=== PATIENT | male | born 1940 | race Caucasian/White ===

== ENCOUNTER 2024-01-24 22:43 | Inpatient (IN) | payer MEDICARE, OTHER, SELFPAY ==
[2024-01-24 17:37] VITALS: BP 129/74
--- NOTE | 2024-01-24 21:24 | ED.MUSCINJ ---
HPI-Injury
General
Chief Complaint: Musculo-Skeletal Complaint
Source: patient
Exam Limitations: none
Time Seen by Provider: 01/24/24 20:36
Nursing documentation reviewed up to this point in time: agreed with
Travel History
Have you had any contact with someone who has COVID-19?: No
Do you have any symptoms of coronavirus? Fever > 100 degrees, chills, cough, shortness of breath, sore throat, loss of taste or smell, muscle aches, or headache?: No
History of Present Illness-Injury
Is this injury a work related problem?: No
Is pt an associate of [facility]?: No
Initial Injury comments:
Patient to ED with complaint of right knee pain, frequent falls. States he has a history of parkinsons. He fell a few weeks aog and injured his right knee. Had outpatient xrays which were neg for fracture. States he has fallen daily over the
past 3 days. States he is unable to lift his right leg. Brought to ED by spouse for eval. No other injuries. Denies hitting his head. No LOC>
Past History
Past History
ED Past Medical History: Arrthythmia (A fib), HTN and Other (Parkinsons)
ED Past Surgical History: None
Social History
Tobacco: Non-smoker
Alcohol: None
Review of Systems
Review of Systems
Allergies reviewed?: Yes
All Other Systems: ROS reviewed and negative except as documented in HPI and ROS
Constitutional: Reports no symptoms
Musculoskeletal: Reports joint pain (Pain to right ant knee)
Skin: Reports no symptoms
Neurological: Reports no symptoms
Psychiatric: Reports no symptoms
Musculoskeletal Injury Exam
Musculoskeletal Injury Exam
Right Anterior Knee:
Pain with Movement?: Moderate
Tender to palpation?: Moderate
Soft tissue swelling?: None
External deformity and angulation?: None
Joint effusion?: None
Contusion?: Moderate
Hematoma-local bleeding into tissue?: None
Strain- Sprain- Tear (Connective tissue injury)?: Moderate
Crepitus with movement?: No
Joint instability?: No
Malalignment/deformity?: No
Range of motion: Limited
Distal skin color and temperature: normal-warm & good color
Capillary Refill: normal
Normal distal neurovascular exam?: Yes
Phy Exam
General Physical Exam
General Presentation: well appearing and no apparent distress
General age: appears stated age
General Skin: warm and dry
General Habitus: normal
General Mental: alert
General Hydration: appears well hydrated
Musculoskeletal Exam
Musculoskeletal Exam: neuro vasc intact and other (Rupture of patellar tendon. Unable to lift leg at knee. Deformity palpated)
Skin Exam
Skin Exam: normal color, warm/dry and no rash
Psychiatric Exam
Psychiatric Exam: normal mood/affect
Injury Course
Orders/Labs/Results
Orders:
Orders
01/24/24 17:44
CR Knee- Right 4 Or More View* Urgent
Comment:
Reason For Exam: fall/knee pain
01/24/24 21:31
Complete Blood Count/With Diff Urgent
Comprehensive Metabolic Panel Urgent
*Radiology
Radiology exam reviewed: radiology read reviewed
*Pulse Oximetry
Patient hypoxic: no
*Critical Care Note
Total Time (30-74mins, 75-104mins- exclusive of procedures): Not Applicable
Update Note
Update Note:
Patient has followed with Yves at [facility]. Requests to follow with Yves provider here. Patient is admitted to hospitalists service for patellar tendon rupture. He is unable to safely transfer or ambulate.
ED Attending Note
-
Portions of this chart may have been created with voice recognition software.� Occasional wrong word or��sound alike� substitutions may have occurred due to the inherent limitations of voice recognition software.
Discharge Plan
Departure
Patient Disposition: Admit
Date of Disposition: 01/24/24
Time of Disposition: 21:30
Presentation/result/management discussed w/ accepting MD/DO: Hospitalist
Patient with high blood pressure during this ER visit?: No
Condition: Fair
Covid-19: Not Applicable
Discharge Problem:
Patellar tendon rupture
Prescriptions:
No Action
amantadine HCl [Symmetrel] 100 MG tablet
100 mg PO DAILY
cetirizine [Zyrtec] 10 MG tablet
10 mg PO DAILY
atorvastatin 10 MG tablet
10 mg PO DAILY
tamsulosin [Flomax] 0.4 MG capsule
0.4 mg PO DAILY
omeprazole 20 MG capsule,delayed release(DR/EC)
20 mg PO DAILY
carbidopa-levodopa 1 EACH tablet
0.5 tab PO Q3
btljnmvfv-sqbhzyrd-ezkrdmclyq 1 EACH tablet
1 ea PO Q3
solifenacin 10 MG tablet
10 mg PO DAILY
mirabegron [Myrbetriq] 25 MG tablet extended release 24 hr
50 mg PO DAILY
apixaban [Eliquis] 5 MG tablet
5 mg PO BID
atorvastatin 40 MG tablet
40 mg PO QPM Qty: 30 0RF
Interventions
Interventions:
*Risk Screen - Suicide Last Done: 01/24/24 17:37
*General Assessment Last Done: 01/24/24 17:37
*Neglect/Abuse Screening Last Done: 01/24/24 17:37
ED- Fall Risk Assessment Last Done: 01/24/24 21:15
*ED COVID-19 Vaccine History Last Done: 01/24/24 20:51
ED-Musculoskeletal Assessment Last Done: 01/24/24 20:51
ED- Neurological Assessment Last Done: 01/24/24 20:51
ED-Skin Assessment Last Done: 01/24/24 20:51
Discharge Date and Time
Print Language: NORTH KORE[place]
--- NOTE | 2024-01-24 21:34 | ED.MUSCINJ ---
HPI-Injury
General
Chief Complaint: Musculo-Skeletal Complaint
Source: patient
Exam Limitations: none
Time Seen by Provider: 01/24/24 20:36
Nursing documentation reviewed up to this point in time: agreed with
Travel History
Have you had any contact with someone who has COVID-19?: No
Do you have any symptoms of coronavirus? Fever > 100 degrees, chills, cough, shortness of breath, sore throat, loss of taste or smell, muscle aches, or headache?: No
Past History
Past History
ED Past Medical History: Arrthythmia (A fib), HTN and Other (Parkinsons)
ED Past Surgical History: None
Social History
Tobacco: Non-smoker
Alcohol: None
Injury Course
Orders/Labs/Results
Orders:
Orders
01/24/24 Dinner
Regular
At Your Request: Full Participation
01/24/24 17:44
CR Knee- Right 4 Or More View* Urgent
Comment:
Reason For Exam: fall/knee pain
01/24/24 21:47
Complete Blood Count/With Diff Urgent
Comprehensive Metabolic Panel Urgent
01/24/24 22:19
Admit/Transfer Patient As Directed
Co-Sign Provider:
Level of Care: Inpatient admission
Assign to:: Telemetry
Physician / Group: chandni pinon
Diagnosis: mechan falls w/ Right knee effusion concern ligament tear
Reason for Telemetry: Arrhythmia
Date to Stop Telemetry: 01/27/24
Time to Stop Telemetry: 11:00
Reason for Hospitalization: mechan falls w/ Right knee effusion concern ligament tear
Expected length of stay greater than two midnights?: Yes
ELOS- Estimated Length of Stay in days: 4
I certify the patient meets the requirements for IP care: Yes
Code Status As Directed
Resuscitation Status: Do not resuscitate
Reached after discussion with pt or family/Healthcare POA: Yes
Based on pt advanced directive or healthcare POA form: Yes
Decision communicated with: Per patient with present at bedside
01/24/24 22:20
DNR Bracelet Application ONCE
01/24/24 22:53
Oxycodone [Roxicodone] 5 mg PO Q4HPRN PRN
Polyethylene Glycol Powder [Miralax] 17 grams PO DAILYPRN PRN
01/24/24 22:53
Activity As Directed
Activity Level: With Assistance
Vital Signs As Directed
Frequency: Per unit guidelines
Ot Eval And Treat Routine
Pt Eval And Treat Routine
Activity Level: With Assistance
DX Deep Vein Thrombosis Video Routine
01/24/24 23:00
Carbidopa/Levodopa [Sinemet 25-100] 0.5 tablet PO Q3H
01/25/24 00:00
Acetaminophen [Tylenol] 650 mg PO Q4
01/25/24 04:39
Basic Metabolic Panel IN AM
Complete Blood Count/With Diff IN AM
01/25/24 08:00
Amantadine [Symmetrel] 100 mg PO DAILY
Empagliflozin [Jardiance] 10 mg PO DAILY
Flecainide [Tambocor] 100 mg PO BID
Heparin 5,000 units SC Q12
Metoprolol Xl [Toprol Xl] 25 mg PO DAILY
Pantoprazole [Protonix] 40 mg PO DAILY
Solifenacin Succinate [Vesicare] 5 mg PO DAILY
Torsemide [Demadex] 10 mg PO DAILY
rotigotine [Neupro] 1 patch TRANSDERM DAILY
01/25/24 22:00
Atorvastatin [Lipitor] 10 mg PO HS
Cetirizine HCl [Zyrtec] 10 mg PO HS
Mirtazapine [Remeron] 15 mg PO HS
Sertraline HCl [Zoloft] 100 mg PO HS
01/27/24 11:00
DC Protocol for Telemetry ONCE
Abnormal Lab Results
01/24/24
21:47
RBC 3.95 L 10^6/uL
(4.70-6.10)
Hgb 10.9 L g/dL
(13.0-18.0)
Hct 33.8 L %
(39.0-52.0)
MCHC 32.2 L g/dL
(33.0-37.0)
RDW 17.1 H %
(11.5-14.5)
Abs Immat Gran (auto) 0.1 H 10^3/uL
(0-0.05)
Absolute Monos (auto) 1.0 H 10^3/uL
(0.1-0.6)
Immature Gran % 0.7 H %
(0-0.5)
Monocytes % 12.4 H %
(1.7-9.3)
Chloride 112 H mmol/L
(98-107)
BUN 38 H mg/dl
(9-20)
01/24/24 21:47
01/24/24 21:47
ED Attending Note
-
Portions of this chart may have been created with voice recognition software.� Occasional wrong word or��sound alike� substitutions may have occurred due to the inherent limitations of voice recognition software.
Discharge Plan
Departure
Patient Disposition: Admit
Date of Disposition: 01/24/24
Time of Disposition: 21:30
Presentation/result/management discussed w/ accepting MD/DO: Hospitalist
Patient with high blood pressure during this ER visit?: No
Condition: Fair
Covid-19: Not Applicable
Discharge Problem:
Patellar tendon rupture
Interventions
Interventions:
*Risk Screen - Suicide Last Done: 01/24/24 17:37
*General Assessment Last Done: 01/24/24 17:37
*Neglect/Abuse Screening Last Done: 01/24/24 17:37
ED- Fall Risk Assessment Last Done: 01/24/24 21:15
*ED COVID-19 Vaccine History Last Done: 01/24/24 20:51
*Nursing Disposition Last Done: 01/25/24 19:59
ED-Musculoskeletal Assessment Last Done: 01/24/24 20:51
ED- Neurological Assessment Last Done: 01/24/24 20:51
ED-Skin Assessment Last Done: 01/24/24 20:51
Discharge Date and Time
Discharge Date/Time: 01/25/24 20:00
--- NOTE | 2024-01-24 21:40 | HPS.HSE ---
Addendum entered and electronically signed by Clifford Collins MD 01/24/24 23:08:
-
Original Note:
Family Physician
-
Family Physician:
Chief Complaint
-
Frequent falls, right knee pain
History of Present Illness
83-year-old male with a history of Parkinson's disease and frequent falls. He reports he has fallen daily over the past 3 days he is unable to lift his right leg due to pain and swelling in the right knee. Had outpatient x-rays that were negative
for fracture x-ray here shows moderate to large effusion. His past medical history of Parkinson's, frequent falls, chronic ambulatory dysfunction, persistent A-fib, sick sinus syndrome, pacemaker [employer] 2020, [employer], CVA 2020, HTN, HLD,
arthritis knees with injections to left knee [facility]
Medical History
Past Medical History
Past Medical History: Reports Other
Additional Past Medical History:
Parkinson's, frequent falls
chronic ambulatory dysfunction
persistent A-fib
sick sinus syndrome, pacemaker [employer] 2020, [facility]
CVA 2020
HTN
HLD
arthritis knees with injections to left knee [facility]
Past Surgical History: Reports Other
Additional Past Surgical History:
sick sinus syndrome, pacemaker [employer] 2020, [employer]
Joint injections left knee [facility]
Hiatal hernia repair
Social History
Tobacco: Non-smoker
Alcohol: None
Drug: None
Personal:
Living: With Family ( Kvng)
Employment: Retired
Family History
Family History: Not pertinent
Allergies / Home Medications
Allergies reflects when Allergies were last updated in [employer]
Home Medications with original date entered in [employer] [facility] [employer])
Allergy/Medication List:
Allergies
Allergy/AdvReac Type Severity Reaction Status Date / Time
hazelnut Allergy Tongue Verified 01/24/24 17:44
Swelling
Iodinated Contrast Media Allergy Unknown Verified 01/24/24 17:44
Home Medications
atorvastatin 10 mg tablet 10 mg PO HS High cholesterol 04/20/20
cetirizine 10 mg tablet (Zyrtec) 10 mg PO HS Allergies 04/20/20
omeprazole 20 mg capsule,delayed release 20 mg PO DAILY Gastrointestinal issue 04/20/20
acetaminophen 650 mg tablet,extended release 650 mg PO Q3H 01/24/24
amantadine HCl 100 mg capsule 100 mg PO DAILY 01/24/24
carbidopa 25 mg-levodopa 100 mg tablet (Dhivy) 0.5 tab PO Q3H 01/24/24
carbidopa 25 mg-levodopa 100 mg-entacapone 200 mg tablet 1 tab PO Q3H 01/24/24
empagliflozin 10 mg tablet (Jardiance) 10 mg PO DAILY 01/24/24
flecainide 50 mg tablet 100 mg PO BID 01/24/24
metoprolol succinate 25 mg tablet,extended release 24 hr 25 mg PO DAILY 01/24/24
mirtazapine 15 mg tablet 15 mg PO HS 01/24/24
polyethylene glycol 3350 17 gram oral powder packet (Miralax) 17 g PO DAILY PRN constipation 01/24/24
rotigotine 6 mg/24 hour transdermal 24 hour patch (Neupro) 1 patch transdermal DAILY 01/24/24
sertraline 100 mg tablet 100 mg PO HS 01/24/24
solifenacin 5 mg tablet 5 mg PO DAILY 01/24/24
torsemide 20 mg tablet 10 mg PO DAILY 01/24/24
Review of Systems
-
History Source: Patient and Family ( Kvng at bedside)
A 12 point ROS was completed and negative except as noted: Yes
Constitutional: Denies Fever or Fatigue
EENT: Denies Sore Throat or Runny Nose
Respiratory: Denies Cough or Trouble Breathing
Cardiac: Denies Chest Pain, Diaphoresis, Palpitations or Syncope
Abdomen/GI: Denies Abdominal Pain, Nausea, Vomiting or Diarrhea
: Denies Dysuria, Frequency, Flank Pain, Incontinence or Difficulty Voiding
Musculoskeletal: Reports Joint Pain (Right knee), Joint Swelling (Right knee) and Edema (Right lower extremity +1-2)
Skin: Reports Other (Abrasions bilateral knees); Denies Itching or Rash
Neurological: Denies Dizzy, Headache or Weakness
Endocrine: Reports No Symptoms
Hematologic/Lymphatic: Reports No Symptoms
Psych: Reports Calm
Physical Exam
Vital Signs
Vital Signs
Temp Pulse Resp BP Pulse Ox
97.5 F 60 20 129/74 97
01/24/24 17:37 01/24/24 17:37 01/24/24 17:37 01/24/24 17:37 01/24/24 17:37
Physical Exam
General: Comfortable, Conversant and Pain; No Fever or Chills
HEENT: NormoCephalic, Anicteric, PERRLA, [place] Conjunctivae and No Ptosis
Respiratory: Clear; No Wheezes, Rales or Rhonchi
Cardiac: S1/S2, Regular Rhythm and Peripheral Edema; No Murmur, Rub or Gallop
Breast: Deferred by me
GI: Soft, Non Tender, Non Distended, Normal Bowel Sounds and No Hepatosplenomegaly
Rectal: Deferred by Provider
Genito-urinary: Deferred by me
Musculoskeletal: No Clubbing, No Cyanosis, Edema, Right Lower Extremity (+1-2) and Other (Right knee tenderness top of patella, right medial collateral ligament tenderness with joint effusion); No Edema, Left Upper Extremity, Edema, Right Upper
Extremity or Edema, Left Lower Extremity
Skin: Warm, Dry and Other (Abrasion bilateral knees left lower extremity); No Rash
Neuro: AO x 3 and Other; No Slurred Speech, Facial Droop or Tremors
Psych: Calm
Impression/Plan
-
Impression/plan:
Admit to telemetry
# Mechanical fall w/right knee effusion concern for ligament tear
-Consult Yves in am as no one belt sander stone tonight (patient known to Yves at [facility] for knee injections)
-Knee immobilizer
-MRI right knee if pacemaker compatible
-PT/OT/case management consult
X-ray right knee: No acute fracture or dislocation
Moderate to large joint effusion within the suprapatellar recess seen on lateral view
#Abrasions bilateral knees and left anterior hernandez
Local wound care monitor for infection
#Parkinson's disease with multiple falls
#Chronic ambulatory dysfunction uses rollator at baseline
-Continue carbidopa /levodopa /entacapone -patient to take own
-Continue Neupro patch
#Persistent A-fib
-Continue flecainide, metoprolol succinate 25 mg daily
-Hold Eliquis
2D echo 04/21/2020: EF 70-75%, left ventricle small in size, enlarged right ventricular size, severely dilated left atrium, moderate dilated right atrium
Mild to moderate MR
Mild to moderate TR
Small PFO
#Permanent pacemaker [employer]
#Sick sinus syndrome
#Chronic leg edema
-Continue torsemide 10 mg daily
#CVA 2019
#HTN�benign
Continue metoprolol succinate 25 mg daily
129/74
#HLD
-Continue atorvastatin
#Urinary frequency
-continue Myrbetriq, Vesicare 5 mg daily
#GERD
-Continue omeprazole
#Insomnia
-Continue mirtazapine
DVT prophylaxis
Subcu heparin
DNR per patient with Kvng at bedside
[2024-01-24 21:54] VITALS: BP 158/103
[2024-01-24 21:56] LABS: % Basophils 0.5 % (0-2); % Eosinophils 4.3 % (0-6); % Immature Granulocytes 0.7 % (0-0.5); % Lymphocytes 20.8 % (20.5-51.1); % Monocytes 12.4 % (1.7-9.3); % Neutrophils 61.3 % (42.2-75.2); Absolute Eosinophils 0.3 10^3/uL (0-0.7); Absolute Immature Granulocytes 0.1 10^3/uL (0-0.05); Absolute Lymphocytes 1.6 10^3/uL (1.2-3.4); Absolute Neutrophils 4.7 10^3/uL (1.4-6.5); Hematocrit 33.8 % (39.0-52.0); Hemoglobin 10.9 g/dL (13.0-18.0); Mean Corp Hgb Conc. 32.2 g/dL (33.0-37.0); Mean Corpuscular Hgb 27.6 pg (27.0-31.0); Mean Corpuscular Volume 85.6 fL (80.0-94.0); Mean Platelet Volume 8.5 fL (7.4-10.4); Nucleated Red Blood Cells % 0 % (-); Platelet Count 297 10^3/uL (130-400); Red Blood Cell Count 3.95 10^6/uL (4.70-6.10); Red Cell Dist. Width 17.1 % (11.5-14.5); White Blood Cell Count 7.7 10^3/uL (4.8-10.8)
[2024-01-24 22:00] VITALS: BP 170/90
[2024-01-24 22:14] VITALS: BP 166/97
[2024-01-24 22:23] LABS: ALT (SGPT) < 10 U/L (0-50); AST (SGOT) 32 U/L (17-59); Albumin 3.9 g/dl (3.5-5.0); Alkaline Phosphatase 102 U/L (38-126); Blood Urea Nitrogen 38 mg/dl (9-20); Carbon Dioxide 24 mmol/L (22-30); Chloride 112 mmol/L (98-107); Glucose 92 mg/dl (70-99); Potassium 5.1 mmol/L (3.5-5.1); Sodium 139 mmol/L (135-145); Total Bilirubin 0.4 mg/dl (0.2-1.3); Total Protein 6.4 g/dl (6.3-8.2); eGFR 55.19
[2024-01-24 23:00] VITALS: BP 185/101
--- NOTE | 2024-01-24 23:08 | W.PN.UPDATE ---
Update Note
Progress Note Update
This is an addendum to the H&P written by lens assistant Sherry Carrizales on 01/24/2024.
Patient seen and examined independently with MONITOR TECHNICIAN.� 83-year-old past medical history of atrial fibrillation not on anticoagulation, sick sinus syndrome with pacemaker,, Parkinson's, BPH, hyperlipidemia, hypertension, bilateral knee arthritis for which
he receives injections by Yves, presenting with frequent falls with recent fall few weeks ago injuring his right knee.
Knee x-ray showing moderate to large suprapatellar joint effusion.� Concern for possible patellar tendon tear/ligament injury.� Check MRI of right knee.� [facility] orthopedics needs to be consulted tomorrow.� Joint effusion may require drainage.
[2024-01-24] MEDS: SINEMET 25-100 1 TABLET PO (23:52)
[2024-01-24] MEDS: COMTAN 200 MG PO (23:52)
[2024-01-24] MEDS: TYLENOL 650 MG PO (23:52)
[2024-01-25] VITALS (26 sets, daily range): BP systolic 89–189; BP diastolic 51–110
[2024-01-25 04:47] LABS: % Basophils 0.9 % (0-2); % Eosinophils 5.3 % (0-6); % Immature Granulocytes 0.4 % (0-0.5); % Lymphocytes 23.7 % (20.5-51.1); % Monocytes 12.2 % (1.7-9.3); % Neutrophils 57.5 % (42.2-75.2); Absolute Basophils 0.1 10^3/uL (0-0.2); Absolute Eosinophils 0.4 10^3/uL (0-0.7); Absolute Lymphocytes 1.7 10^3/uL (1.2-3.4); Absolute Monocytes 0.9 10^3/uL (0.1-0.6); Absolute Neutrophils 4.1 10^3/uL (1.4-6.5); Hematocrit 34.4 % (39.0-52.0); Hemoglobin 10.8 g/dL (13.0-18.0); Mean Corp Hgb Conc. 31.4 g/dL (33.0-37.0); Mean Corpuscular Hgb 26.8 pg (27.0-31.0); Mean Corpuscular Volume 85.4 fL (80.0-94.0); Mean Platelet Volume 8.5 fL (7.4-10.4); Nucleated Red Blood Cells % 0 % (-); Platelet Count 288 10^3/uL (130-400); Red Blood Cell Count 4.03 10^6/uL (4.70-6.10); Red Cell Dist. Width 17.1 % (11.5-14.5)
[2024-01-25] MEDS: TYLENOL PO (05:03)
[2024-01-25 05:21] LABS: Blood Urea Nitrogen 35 mg/dl (9-20); Calcium 9.9 mg/dl (8.4-10.2); Carbon Dioxide 23 mmol/L (22-30); Chloride 111 mmol/L (98-107); Estimated Creatinine Clearance 45 ml/min; Glucose 90 mg/dl (70-99); Potassium 4.9 mmol/L (3.5-5.1); Sodium 137 mmol/L (135-145); eGFR > 60.00
--- NOTE | 2024-01-25 07:52 | W.PN.UPDATE ---
Update Note
Progress Note Update
Has R knee quadriceps rupture
For Repair tomorrow
Thanks
GGMD
[2024-01-25] MEDS: SINEMET 25-100 0.5 TABLET PO ×5 (08:33→21:58)
[2024-01-25] MEDS: SINEMET 25-100 1 TABLET PO ×4 (08:33→21:58)
[2024-01-25] MEDS: COMTAN 200 MG PO ×4 (08:33→21:55)
[2024-01-25] MEDS: TYLENOL 650 MG PO ×4 (08:40→21:48)
[2024-01-25] MEDS: TOPROL XL 25 MG PO (08:40)
[2024-01-25] MEDS: PROTONIX 40 MG PO (08:40)
[2024-01-25] MEDS: DEMADEX 10 MG PO (08:40)
[2024-01-25] MEDS: JARDIANCE 10 MG PO (08:41)
[2024-01-25] MEDS: HEPARIN 5000 UNITS SC ×2 (08:41→21:49)
--- NOTE | 2024-01-25 09:02 | W.PN.UPDATE ---
Update Note
Progress Note Update
Impression:
Right knee quadriceps rupture secondary to mechanical fall.
AIYANA
Conditions prior to admission:
Persistent atrial fibrillation
Sick sinus syndrome status post pacemaker.
History of CVA 2019.
Essential hypertension
Dyslipidemia
Parkinson disease
Chronic ambulatory dysfunction with multiple falls.
Osteoarthritis of the knee with injections to the left knee.
Overactive bladder
Plan:
Right knee quadriceps rupture.
Orthopedic input appreciated.
Plan is for OR repair on 01/25.
Medical clearance for surgery.
Low/intermediate risk surgical procedure.
RCRI (revised cardiac risk index) including 6 independent predictors of major cardiac complications
� History of cerebrovascular disease.
-Negative for heart failure, diabetes, mild with creatinine 1.3 improved to 1.1. No history of CKD.
Rate of cardiac , nonfatal myocardial infarction, nonfatal cardiac arrest according to the number of predictors (1) 1�1.3 %
No prohibitive risk to proceed. No additional workup required.
Persistent atrial fibrillation
Sick sinus syndrome with pacemaker in place.
Not on anticoagulation secondary to fall risk.
Continue metoprolol
Valvular heart disease
Essential hypertension
Echo 2020 LVEF 70-75%, enlarged right ventricle, normal right ventricular function. Mild to moderate MR.
Monitor volume status closely.
Preadmission regimen: Metoprolol, torsemide, Jardiance.
AIYANA creatinine 1.3.
Hold torsemide.
Monitor BMP.
Reinstate diuretic postoperatively
Parkinson disease
Continue carbidopa levodopa
Continue sertraline and Remeron.
Overactive bladder
Continue Solifenacin.
Monitor for retention.
--- NOTE | 2024-01-25 09:08 | W.PN.HOSP.TC ---
Today's Communication/Plan
-
Right knee quadriceps repair tomorrow
Assessment / Plan
Assessment / Plan
Impression
Right knee quadriceps rupture
Parkinson disease with multiple falls
Persistent atrial fibrillation
Permanent pacemaker placed in 2019
Hypertension
Chronic leg edema
History of CVA
GERD
History of mood disorder
Plan
Right knee quadriceps rupture
Orthopedics input appreciated
Repair tomorrow
N.p.o. after midnight
Parkinson disease with multiple falls
Leading to chronic ambulatory dysfunction. Patient uses rollator
Resume home medications-carbidopa/levodopa/entacapone
Continue neuro patch
Persistent atrial fibrillation
Resume flecainide for rhythm control
Rate controlled with beta-blockers
Hold Eliquis
Permanent pacemaker placed in 2019
Due to sickness sinus syndrome
Hypertension
Continue metoprolol succinate
Chronic leg edema
Continue torsemide
GERD
Continue omeprazole
History of mood disorder
Continue mirtazapine, sertraline
DVT prophylaxis
Heparin subcu
Anticipated Discharge: > 48 hours
Subjective/Interval History
-
Date of Service: January 25, 2024
Patient is doing okay, denies chest pain shortness of breath. at bedside.
Objective Data
-
Labs:
Laboratory Results
01/24/24 01/25/24
21:47 04:39
WBC 7.7 7.0
Hgb 10.9 L 10.8 L
Hct 33.8 L 34.4 L
Plt Count 297 288
Sodium 139 137
Potassium 5.1 4.9
Chloride 112 H 111 H
Carbon Dioxide 24 23
BUN 38 H 35 H
Creatinine 1.3 1.1
Glucose 92 90
Calcium 10.0 9.9
Total Bilirubin 0.4
AST 32
ALT < 10
Alkaline Phosphatase 102
Vital Signs:
Vital Signs
Temp Pulse Resp BP Pulse Ox
97.5 F 70 10 172/51 96
01/24/24 17:37 01/25/24 08:40 01/25/24 00:00 01/25/24 08:40 01/24/24 23:00
Review of Systems
-
History Source: Patient
All other systems: Reviewed and negative
Physical Exam
-
General: Comfortable
HEENT: Normocephalic and Atraumatic
Respiratory: Clear to Auscultation
Cardiac: Regular Rhythm and S1/S2
Musculoskeletal: No Edema
Neuro: AO x 3
Psych: Calm
Data Reviewed
-
Labs: Labs Reviewed by me and Discussed with Physician
[2024-01-25] MEDS: VESICARE 5 MG PO (11:25)
[2024-01-25] MEDS: SYMMETREL 100 MG PO (11:25)
[2024-01-25] MEDS: TAMBOCOR 100 MG PO ×2 (11:26→21:48)
[2024-01-25] MEDS: SINEMET 25-100 PO ×2 (11:28→11:45)
--- NOTE | 2024-01-25 13:26 | CM ---
Patient seen at bedside in ED with spouse. Patient spouse indicated that he was very interested in aides/VN at discharge pending assessments by therapy/physician. Patient stated that they have 2 homes, one in [place] that is 2 stories with
stair glides and an apartment/condo in [place] that is all one floor. Patient has a quad cane, rollator, walker and wheelchair at home. Patient is followed by [facility] from [facility] and has current therapist. Patient currently scheduled for
possible surgery tomorrow. PCP is Dr. Figueredo and [facility] [place] on [address] CM will continue to follow for discharge planning needs.
Plan; TBD pending assessments following surgery, Possible VN vs SNF
[2024-01-25] MEDS: MIRALAX 17 GRAMS PO (13:38)
[2024-01-25] MEDS: COMTAN PO (16:21)
[2024-01-25] MEDS: DULCOLAX 10 MG RECTAL (17:10)
--- NOTE | 2024-01-25 21:03 | W.PN.UPDATE ---
Update Note
Progress Note Update
Patient is hypotensive with bp 90/58 symptomatic, feeling dizzy, one time order of IVF NSS 500cc was placed.
[2024-01-25] MEDS: NSS 500 IV (21:15)
[2024-01-25] MEDS: ZYRTEC 10 MG PO (21:48)
[2024-01-25] MEDS: LIPITOR 10 MG PO (21:48)
[2024-01-25] MEDS: ZOLOFT 100 MG PO (21:48)
[2024-01-25] MEDS: REMERON PO (22:49)
[2024-01-26] VITALS (13 sets, daily range): BP systolic 109–172; BP diastolic 66–96
--- NOTE | 2024-01-26 00:13 | PTCARENOTE ---
This RN received pt from ED around 2029. Pt drowsy but arousable and able to hold conversation with staff. Pt falling asleep during conversations at times. Manual BP 90/58. BUTCH Vitale notified. 500 ml bolus of NSS ordered. Going at 100mls/hr.
Call rubio within reach. Plan of care ongoing.
[2024-01-26] MEDS: TYLENOL 650 MG PO ×6 (00:34→23:57)
[2024-01-26] MEDS: SINEMET 25-100 1 TABLET PO ×7 (00:36→23:56)
[2024-01-26] MEDS: COMTAN 200 MG PO ×7 (00:36→23:56)
[2024-01-26] MEDS: SINEMET 25-100 0.5 TABLET PO ×7 (00:36→23:56)
[2024-01-26 05:45] LABS: % Basophils 0.4 % (0-2); % Eosinophils 1.3 % (0-6); % Immature Granulocytes 0.6 % (0-0.5); % Lymphocytes 11.2 % (20.5-51.1); % Monocytes 11.3 % (1.7-9.3); % Neutrophils 75.2 % (42.2-75.2); Absolute Basophils 0.1 10^3/uL (0-0.2); Absolute Eosinophils 0.2 10^3/uL (0-0.7); Absolute Immature Granulocytes 0.1 10^3/uL (0-0.05); Absolute Lymphocytes 1.3 10^3/uL (1.2-3.4); Absolute Monocytes 1.3 10^3/uL (0.1-0.6); Absolute Neutrophils 8.6 10^3/uL (1.4-6.5); Hematocrit 31.4 % (39.0-52.0); Hemoglobin 10.2 g/dL (13.0-18.0); Mean Corp Hgb Conc. 32.5 g/dL (33.0-37.0); Mean Corpuscular Hgb 27.5 pg (27.0-31.0); Mean Corpuscular Volume 84.6 fL (80.0-94.0); Mean Platelet Volume 8.7 fL (7.4-10.4); Nucleated Red Blood Cells % 0 % (-); Platelet Count 282 10^3/uL (130-400); Red Blood Cell Count 3.71 10^6/uL (4.70-6.10); Red Cell Dist. Width 17.1 % (11.5-14.5); White Blood Cell Count 11.4 10^3/uL (4.8-10.8)
[2024-01-26 06:15] LABS: Blood Urea Nitrogen 31 mg/dl (9-20); Calcium 9.2 mg/dl (8.4-10.2); Carbon Dioxide 23 mmol/L (22-30); Chloride 104 mmol/L (98-107); Estimated Creatinine Clearance 45 ml/min; Glucose 88 mg/dl (70-99); Potassium 4.5 mmol/L (3.5-5.1); Sodium 132 mmol/L (135-145); eGFR > 60.00
[2024-01-26] MEDS: SYMMETREL 100 MG PO (08:06)
[2024-01-26] MEDS: PROTONIX 40 MG PO (08:06)
[2024-01-26] MEDS: JARDIANCE 10 MG PO (08:06)
[2024-01-26] MEDS: TAMBOCOR 100 MG PO ×2 (08:07→20:41)
[2024-01-26] MEDS: HEPARIN 5000 UNITS SC (08:08)
[2024-01-26] MEDS: VESICARE 5 MG PO (08:13)
[2024-01-26] MEDS: TOPROL XL 25 MG PO (08:19)
[2024-01-26] MEDS: SENOKOT-S 1 TABLET PO (10:03)
--- NOTE | 2024-01-26 11:03 | CM ---
Pt for a right knee quad repair .
Will need PT OT postop for dc planning.
PLAN will depend on PT OT evals postop
--- NOTE | 2024-01-26 11:10 | W.PN.HOSP.TC ---
Today's Communication/Plan
-
Surgery planned today
Assessment / Plan
Assessment / Plan
Impression
Right knee quadriceps rupture
Parkinson disease with multiple falls
Persistent atrial fibrillation
Permanent pacemaker placed in 2019
Hypertension
Chronic leg edema
History of CVA
GERD
History of mood disorder
Plan
Right knee quadriceps rupture
Orthopedics input appreciated
Surgery planned today
RCRI 6%- low to intermediate risk for a low risk surgery
Parkinson disease with multiple falls
Leading to chronic ambulatory dysfunction. Patient uses rollator
Resume home medications-carbidopa/levodopa/entacapone
Continue neuro patch
Persistent atrial fibrillation
Resume flecainide for rhythm control
Rate controlled with beta-blockers
Hold Eliquis
Permanent pacemaker placed in 2019
Due to sickness sinus syndrome
Hypertension
Continue metoprolol succinate
Chronic leg edema
Continue torsemide
GERD
Continue omeprazole
History of mood disorder
Continue mirtazapine, sertraline
DVT prophylaxis
Heparin subcu
Anticipated Discharge: 24 - 48 hours
Subjective/Interval History
-
Date of Service: January 26, 2024
Patient was hypotensive 90/58 last night and was started in IVF NSS 500 CC which improved BP
Objective Data
-
Labs:
Laboratory Results
01/26/24
05:02
WBC 11.4 H
Hgb 10.2 L
Hct 31.4 L
Plt Count 282
Sodium 132 L
Potassium 4.5
Chloride 104
Carbon Dioxide 23
BUN 31 H
Creatinine 1.2
Glucose 88
Calcium 9.2
Vital Signs:
Vital Signs
Temp Pulse Resp BP Pulse Ox
98.0 F 63 18 129/83 96
01/26/24 07:00 01/26/24 08:19 01/26/24 07:00 01/26/24 08:19 01/26/24 07:00
I&O
01/25/24 01/26/24 01/27/24
06:59 06:59 06:59
Output Total 1300 / 1300
Balance -1300 / -1300
Review of Systems
-
History Source: Patient
All other systems: Reviewed and negative
Physical Exam
-
General: Comfortable and Conversant; Negative Respiratory Distress
HEENT: Normocephalic and Atraumatic
Respiratory: Clear to Auscultation
Cardiac: Regular Rhythm and S1/S2
Musculoskeletal: No Edema
Neuro: AO x 3
Data Reviewed
-
Labs: Labs Reviewed by me and Discussed with Physician
--- NOTE | 2024-01-26 14:13 | W.PN.UPDATE ---
Update Note
Progress Note Update
Patient seen and examined
Discussed with resident
Discussed with patient's at the bedside.
Impression:
Right knee quadriceps rupture secondary to mechanical fall.
AIYANA
Conditions prior to admission:
Persistent atrial fibrillation
Sick sinus syndrome status post pacemaker.
History of CVA 2019.
Essential hypertension
Dyslipidemia
Parkinson disease
Chronic ambulatory dysfunction with multiple falls.
Osteoarthritis of the knee with injections to the left knee.
Overactive bladder
Plan:
Right knee quadriceps rupture.
Orthopedic input appreciated.
Plan is for OR repair on 01/25.
Medical clearance for surgery.
Low/intermediate risk surgical procedure.
RCRI (revised cardiac risk index) including 6 independent predictors of major cardiac complications
� History of cerebrovascular disease.
-Negative for heart failure, diabetes, mild with creatinine 1.3 improved to 1.1. No history of CKD.
Rate of cardiac , nonfatal myocardial infarction, nonfatal cardiac arrest according to the number of predictors (1) 1�1.3 %
No prohibitive risk to proceed. No additional workup required.
Persistent atrial fibrillation
Sick sinus syndrome with pacemaker in place.
Not on anticoagulation secondary to fall risk.
Continue metoprolol
Valvular heart disease
Essential hypertension
Echo 2019 LVEF 70-75%, enlarged right ventricle, normal right ventricular function. Mild to moderate MR.
Monitor volume status closely.
Preadmission regimen: Metoprolol, torsemide, Jardiance.
AIYANA creatinine 1.3.
Hold torsemide.
Monitor BMP.
Reinstate diuretic postoperatively
Parkinson disease
Continue carbidopa levodopa
Continue sertraline and Remeron.
Overactive bladder
Continue Solifenacin.
Monitor for retention.
[2024-01-26] MEDS: NEUPRO 4 MG TRANSDERM (14:54)
[2024-01-26] MEDS: NEUPRO 2 MG TRANSDERM (15:00)
[2024-01-26] MEDS: TYLENOL PO (15:08)
--- NOTE | 2024-01-26 15:12 | PTCARENOTE ---
called report to OR. Pt's spouse at bedside. Dr. Kerr to discuss POC in OR with pt and spouse. cleared PO medications with anesthesiology. sending chart and ancef with pt
[2024-01-26 17:35] LABS: Glucose - Point of Care 92 mg/dl (70-99)
[2024-01-26] MEDS: DILAUDID 0.25 MG IV (17:50)
[2024-01-26] MEDS: NORMOSOL-R 1000 IV (18:03)
--- NOTE | 2024-01-26 18:18 | PTCARENOTE ---
rc'd report pt coming back from PACU, confirmed Ancef was given in OR
--- NOTE | 2024-01-26 18:30 | PTCARENOTE ---
pt returned from OR confused, getting out of bed. redirected. 100% RA. +PP B/L spouse at bedside. encouraged rest, cb in reach. bed alarm on
--- NOTE | 2024-01-26 18:37 | SUR.PHASEI ---
vss, received sedate in pacu with airway; awakened and airway out, trying to get OOB- reoriented, calms at time, but needs frequent reminders. dressing dry - ice to immobilizer. knee area. medicated x1 for pain, after rubbing leg with relief.
discharge to [facility] with report, calm on transport dozing in bed. at bedside.
[2024-01-26] MEDS: COLACE 100 MG PO (20:40)
[2024-01-26] MEDS: REMERON 15 MG PO (22:22)
[2024-01-26] MEDS: LIPITOR 10 MG PO (22:22)
[2024-01-26] MEDS: ZYRTEC 10 MG PO (22:22)
[2024-01-26] MEDS: ZOLOFT 100 MG PO (22:22)
[2024-01-26] MEDS: FLUSH (NSS) 2 FLUSH IV (22:44)
[2024-01-26] MEDS: ANCEF 5 IV (22:44)
[2024-01-27 02:52] VITALS: BP 133/80
[2024-01-27] MEDS: NORMOSOL-R 1000 IV (04:09)
[2024-01-27] MEDS: TYLENOL 650 MG PO ×5 (04:09→20:40)
[2024-01-27 05:56] LABS: Blood Urea Nitrogen 26 mg/dl (9-20); Calcium 9.2 mg/dl (8.4-10.2); Carbon Dioxide 26 mmol/L (22-30); Chloride 100 mmol/L (98-107); Estimated Creatinine Clearance 54 ml/min; Glucose 110 mg/dl (70-99); Potassium 4.6 mmol/L (3.5-5.1); Sodium 133 mmol/L (135-145); eGFR > 60.00
[2024-01-27] MEDS: COMTAN 200 MG PO ×6 (06:19→23:34)
[2024-01-27] MEDS: SINEMET 25-100 0.5 TABLET PO ×6 (06:20→23:33)
[2024-01-27] MEDS: ANCEF 5 IV (06:20)
[2024-01-27] MEDS: SINEMET 25-100 1 TABLET PO ×6 (06:20→23:33)
[2024-01-27] MEDS: FLUSH (NSS) 2 FLUSH IV (06:21)
[2024-01-27 07:43] VITALS: BP 130/86
--- NOTE | 2024-01-27 07:55 | W.PN.UPDATE ---
Update Note
Progress Note Update
POD 1 from Quadriceps repair R knee
Begin PT/Rehab
Suspect will need rehab placement
This particular patient is at high risk for DVT due to his medical issues
I would recommend either Lovenox or Eliquis for 4 weeks followed by aspirin 325 once daily until he resumes previous level of function
Have F/U with me in about 2 weeks from DC
thanks
GGMD
[2024-01-27] MEDS: LOVENOX 30 MG SC (08:13)
[2024-01-27] MEDS: COLACE 100 MG PO ×2 (08:14→20:37)
[2024-01-27] MEDS: TAMBOCOR 100 MG PO ×2 (08:14→20:39)
[2024-01-27] MEDS: DEMADEX 10 MG PO (08:14)
[2024-01-27] MEDS: SYMMETREL 100 MG PO (08:14)
[2024-01-27] MEDS: TOPROL XL 25 MG PO (08:14)
[2024-01-27] MEDS: PROTONIX 40 MG PO (08:14)
[2024-01-27] MEDS: JARDIANCE 10 MG PO (08:15)
[2024-01-27] MEDS: VESICARE 5 MG PO (08:15)
--- NOTE | 2024-01-27 09:02 | W.PN.HOSP.TC ---
Addendum entered and electronically signed by Weston Boyd MD 01/27/24 14:29:
Patient seen and examined
Discussed with resident
Discussed with patient's at the bedside.
Impression:
Right knee quadriceps rupture secondary to mechanical fall.
AIYANA
Conditions prior to admission:
Persistent atrial fibrillation
Sick sinus syndrome status post pacemaker.
History of CVA 2019.
Essential hypertension
Dyslipidemia
Parkinson disease
Chronic ambulatory dysfunction with multiple falls.
Osteoarthritis of the knee with injections to the left knee.
Overactive bladder
Plan:
Right knee quadriceps rupture.
Orthopedic input appreciated.
Status post repair of right quadriceps on 01/25
Physical therapy assessment
Podiatry consultation
DVT prophylaxis with Lovenox for 30 days
Persistent atrial fibrillation
Sick sinus syndrome with pacemaker in place.
Not on anticoagulation secondary to fall risk.
Continue metoprolol
Valvular heart disease
Essential hypertension
Echo 2020 LVEF 70-75%, enlarged right ventricle, normal right ventricular function. Mild to moderate MR.
Monitor volume status closely.
Preadmission regimen: Metoprolol, torsemide, Jardiance.
AIYANA creatinine 1.3.
Hold torsemide.
Monitor BMP.
Reinstate diuretic postoperatively
Parkinson disease
Continue carbidopa levodopa
Original Note:
Today's Communication/Plan
-
Stable
PT/OT
pain control
Assessment / Plan
Assessment / Plan
Impression
Right knee quadriceps rupture
Parkinson disease with multiple falls
Persistent atrial fibrillation
Permanent pacemaker placed in 2019
Hypertension
Chronic leg edema
History of CVA
GERD
History of mood disorder
Plan
Right knee quadriceps rupture
Postop day 1
Surgery was uneventful
Due to high risk of DVT as patient has history of atrial fibrillation, history of stroke, ambulatory dysfunction, will be starting patient on Eliquis/Lovenox for 4 weeks and aspirin 325 mg daily.
Follow-up in 2 weeks outpatient after discharge with the orthopedic surgeon (Dr. Juan Kerr).
Oxycodone 5 mg for pain control
Parkinson disease with multiple falls
Leading to chronic ambulatory dysfunction. Patient uses rollator
Resume home medications-carbidopa/levodopa/entacapone
Continue neuro patch
Persistent atrial fibrillation
Resume flecainide for rhythm control
Rate controlled with beta-blockers
Hold Eliquis
Permanent pacemaker placed in 2019
Due to sickness sinus syndrome
Hypertension
Continue metoprolol succinate
Chronic leg edema
Hold torsemide for surgery
Resume torsemide-postop day 1
GERD
Continue omeprazole
History of mood disorder
Continue mirtazapine, sertraline
DVT prophylaxis
Heparin subcu
Anticipated Discharge: 24 - 48 hours
Subjective/Interval History
-
Date of Service: January 27, 2024
patient c/o 4/5 pain
Objective Data
-
Labs:
Laboratory Results
01/27/24
05:02
Sodium 133 L
Potassium 4.6
Chloride 100
Carbon Dioxide 26
BUN 26 H
Creatinine 1.0
Glucose 110 H
Calcium 9.2
Vital Signs:
Vital Signs
Temp Pulse Resp BP Pulse Ox
98.1 F 64 17 130/86 95
01/27/24 07:43 01/27/24 08:14 01/27/24 07:43 01/27/24 08:14 01/27/24 07:43
I&O
01/26/24 01/27/24 01/28/24
06:59 06:59 06:59
Intake Total 1300 / 1300
Output Total 1300 / 1300
Balance -1300 / -1300 1300 / 1299
Review of Systems
-
History Source: Patient
All other systems: Reviewed and negative (except mentioned )
Musculoskeletal: Reports Joint Pain
Physical Exam
-
General: Conversant
HEENT: Normocephalic and Atraumatic
Respiratory: Clear to Auscultation
Cardiac: Regular Rhythm and S1/S2
Musculoskeletal: No Edema
Neuro: AO x 3
--- NOTE | 2024-01-27 09:35 | CM ---
Post op
Pt desires [facility]
Will need PT OT and [facility] eval for dc planning.
Probable SNF or Acute care at dc
--- NOTE | 2024-01-27 11:00 | PTCARENOTE ---
extensive conversation with spouse and pt re: when pt will see patient and what POC will be. Educated PT needs to make recommendations. spouse and pt looking for time of PT assessment, when unable to prove both spouse and pt were agitated. UM at
bedside to assist.
[2024-01-27] MEDS: ROXICODONE 5 MG PO (11:17)
--- NOTE | 2024-01-27 11:54 | PN.CDI ---
CDI
- -
CDI:
Physician Documentation Request
Admit Date: 01/24/24 22:43
Dear Doctor Oliver,
Patient admitted with right knee quadriceps rupture s/p repair.
Na levels documented below:
Patient received IV NSS.
Laboratory Tests
01/26/24 01/27/24
05:02 05:02
Sodium 132 L 133 L
Based on the above, please clarify in the progress notes, the appropriate diagnosis, if significant, that supports the above abnormalities and additional evaluation, monitoring and/or treatment rendered:
Hyponatremia
Insignificant abnormal lab
Other
Use of terms such as suspected, likely, concern for, or probable (associated with a specific diagnosis that is being evaluated, monitored, or treated as if it exists) are acceptable and can be coded in the inpatient setting, when documented at the
time of discharge.
Thank you,
Fidelia BURNETT,RN,CCDS
CDI Specialist
Available via [place] text
Please use your independent medical judgment in providing your response.
[2024-01-27 12:40] VITALS: BP 131/85; PULSE 66; O2SAT 96
[2024-01-27 14:05] VITALS: BP 131/85; PULSE 66; O2SAT 96
[2024-01-27 15:09] VITALS: BP 130/84
--- NOTE | 2024-01-27 15:55 | CON.MD ---
Consultation - Medical
-
Referring Provider: Dr. Weston Boyd
Chief Complaint: Quadriceps tendon repair
History of Present Illness: 83-year-old male with PMH (as below) presented to [facility] on 01/24/2024 after fall with right knee quadriceps rupture status post repair by Dr. Juan Kerr on 01/26/2024. Patient with high risk of blood clot
with DVT prophylaxis with apixaban and Lovenox suggested by orthopedics over the next 30 days. Will need right knee immobilizer for prolonged period of time until cleared by orthopedics bending the knee. Is weightbearing as tolerated in the right
lower extremity.
Past Medical History: Parkinson's disease with frequent falls, persistent atrial fibrillation, sick sinus syndrome status post pacemaker, CVA 2019, HTN, HLD, bilateral knee arthritis
Procedure History: Pacemaker seen March 2020, joint injections left knee, hiatal hernia repair.
Family History: None pertinent
Social History:
Functional Level Premorbidly: Independent with all activities
Functional Level Currently:�� Dependent for lower extremity self-care, max assist for bed mobility. Max assist bed mobility, max assist transfers, ambulating 40 feet x 1 with mod to max assist x 2 and use of rolling walker.
Tobacco: Denies
Alcohol: Denies
Drug use: Denies
Lives with:
24-hour assistance available: Yes
Number of floors: 2 in 1 house, does have another option for a first-floor set up in a condo in [place].
# steps to enter: 1
# steps to second floor: Full flight but has stair glide
Potential First floor set up: Yes
Driving: No
Occupation: Retired
Allergies:
Allergy/AdvReac Type Severity Reaction Status Date / Time
hazelnut Allergy Tongue Verified 01/24/24 17:44
Swelling
Iodinated Contrast Media Allergy Unknown Verified 01/24/24 17:44
Review of Systems:
Constitutional: (x) abNormal _fatigue, little foggy after anesthesia and pain meds
Eye: (x) Normal _
Ear/Nose/Throat: (x) abNormal _soft voice with Parkinson's, no swallowing difficulties
Respiratory: (x) Normal _
Cardiovascular: (x) Normal _
Gastrointestinal: (x) abNormal _chronic constipation and dry mouth from Parkinson's med side effect
Genitourinary: (x) Normal _
Musculoskeletal: (x) abNormal _right leg pain
Integumentary: (x) abNormal _surgical incision right leg
Neurologic: (x) abNormal _Parkinson's disease with falls approximately 5 times a month, recent difficulty bringing his finger to his nose after medications changed by his neurologist a few weeks ago.
Psychiatric: (x) Normal _
Endocrine: (x) Normal _
Hematologic/Lymphatic: (x) Normal _
Allergic/Immunologic: (x) Normal _
Medications:
Active Current Visit Medication List
Category Date Time Status
Acetaminophen [Tylenol] Med 01/25/24 00:00 Active
650 mg PO Q4
Amantadine [Symmetrel] Med 01/25/24 08:00 Active
100 mg PO DAILY
Atorvastatin [Lipitor] Med 01/25/24 22:00 Active
10 mg PO HS
Bisacodyl [Dulcolax] Med 01/25/24 16:51 Active
10 mg RECTAL DAILYPRN PRN
Carbidopa/Levodopa [Sinemet 25-100] Med 01/24/24 23:22 Active
0.5 tablet PO 0700,1100,1400,1700,2000,2300
Carbidopa/Levodopa [Sinemet 25-100] Med 01/24/24 23:00 Active
1 tablet PO 0700,1100,1400,1700,2000,2300
Cetirizine HCl [Zyrtec] Med 01/25/24 22:00 Active
10 mg PO HS
Docusate Sodium [Colace] Med 01/26/24 20:00 Active
100 mg PO BID
Docusate W/Senna [Senokot-S] Med 01/26/24 00:41 Active
1 tablet PO DAILYPRN PRN
Empagliflozin [Jardiance] Med 01/25/24 08:00 Active
10 mg PO DAILY
Enoxaparin Sodium [Lovenox] Med 01/27/24 08:00 Active
30 mg SC DAILY
Entacapone [Comtan] Med 01/24/24 23:00 Active
200 mg PO 0700,1100,1400,1700,2000,2300
Flecainide [Tambocor] Med 01/25/24 08:00 Active
100 mg PO BID
Flush (0.9% Sodium Chloride) [Flush (Nss)] Med 01/24/24 23:00 Active
See Dose Instructions IV PER PROTOCOL
Mag Hydrox/Al Hydrox/Simeth [Maalox] Med 01/26/24 17:51 Active
30 ml PO Q4HPRN PRN
Metoprolol Xl [Toprol Xl] Med 01/25/24 08:00 Active
25 mg PO DAILY
Mirtazapine [Remeron] Med 01/25/24 22:00 Active
15 mg PO HS
Normosol (Mult Electrolytes) [Normosol-R] 1,000 ml Med 01/26/24 17:51 Active
IV 100 mls/hr
Ondansetron Injectable [Zofran] Med 01/26/24 17:51 Active
4 mg IV Q6HPRN PRN
Oxycodone [Roxicodone] Med 01/24/24 22:53 Active
5 mg PO Q4HPRN PRN
Pantoprazole [Protonix] Med 01/25/24 08:00 Active
40 mg PO DAILY
Polyethylene Glycol Powder [Miralax] Med 01/24/24 22:53 Active
17 grams PO DAILYPRN PRN
Rotigotine [Neupro] Med 01/26/24 14:00 Active
2 mg TRANSDERM DAILY@1400
Rotigotine [Neupro] Med 01/26/24 14:00 Active
4 mg TRANSDERM DAILY@1400
Sertraline HCl [Zoloft] Med 01/25/24 22:00 Active
100 mg PO HS
Solifenacin Succinate [Vesicare] Med 01/25/24 08:00 Active
5 mg PO DAILY
Torsemide [Demadex] Med 01/25/24 08:00 Active
10 mg PO DAILY
Vitals:
Temp Pulse Resp BP Pulse Ox
98.2 F 64 17 130/84 96
01/27/24 15:09 01/27/24 15:09 01/27/24 15:09 01/27/24 15:09 01/27/24 15:09
Height 5 ft 9 in
Actual Weight 66 kg
Body Mass Index (BMI) 0.0
Physical Exam:
General Appearance/Observation: Well-developed, well-nourished male in no apparent distress.
Pain/Comfort Assessment: Denies
Mood/Affect: Appropriate
Integumentary/Operative Site: Right knee Dami wrap over dressing. Incision not visualized.
Eyes: Conjunctiva/Lids: normal ��� Pupils: pupils equal round and reactive to light and Accommodation
Ears/Nose/Throat: oral mucosa dry,� throat clear.������������ Lips/Teeth/Gums: normal
Neck: Head forward posture
Cardiovascular: Heart: regular, no murmur
Pulses: dorsalis pedis palpable bilaterally
Respiratory: Respiratory Effort/Chest Expansion: normal ������ Auscultation: Clear to auscultation bilaterally
Gastrointestinal: abdomen not tender, no distension, normal abdominal bowel sounds
Genitourinary: No Trotter
Extremities: Edema: Mild right leg edema cyanosis: None Trophic changes: None
Neurology Exam:
Orientation: Alert, Oriented to self, Time except during the week, Place
Memory: Intact for basic concerns and recent history
Comprehension: Intact
Two step command: Intact
Calculation: Intact
Cranial Nerves:
�� CNII: Pupillary light reflex: Intact��
�� CN III, IV, : Extraocular muscles: Intact
�� CN V: Facial Sensation at Forehead: Intact, Maxilla: Intact, Mandible: Intact
�� CN VII: Facial movement: Decreased both sides, masked facies
�� CN VIII: Hearing: Impaired with hearing aids
�� CN IX/X: Speech & swallow: Hypophonia, Position of Uvula: Midline
�� CN XI: Shoulder shrug: Symmetric
�� CN XII: Tongue protrusion: Midline
Sensory:
�� Light touch: Intact in bilateral upper and lower extremities
Reflexes:
�� Biceps: 2+ bilaterally
�� Brachioradialis: 2+ bilaterally
�� Triceps: 2+ bilaterally
�� Patellar: 2+ left
�� Achilles: 2+ bilaterally
�� Babinski: Down going bilaterally
�� Clonus: None
�� Adela: Negative bilaterally
Cerebellar: Dysmetria/Ataxia: Impaired both sides with big circular movements, unable to touch his nose, cannot touch the eye or the mouth
Musculoskeletal:Motor: (Manual muscle scale 0-5)
Muscle SA EF WE EE FF FA HF KE DF EHL PF
Right� 5 4 4 5 2 NT 3 5 3
Left 5 4 4 5 5 5 5 5 5
-right lower extremity strength limited by pain
Tone: Normal in all extremities
Range of Motion: Decreased range of motion both shoulders
Lab Results
Laboratory Data
01/26/24 05:02
01/27/24 05:02
Total Bilirubin 0.4 mg/dl (0.2-1.3) 01/24/24 21:47
AST 32 U/L (17-59) 01/24/24 21:47
ALT < 10 U/L (0-50) 01/24/24 21:47
Alkaline Phosphatase 102 U/L (38-126) 01/24/24 21:47
Total Protein 6.4 g/dl (6.3-8.2) 01/24/24 21:47
Albumin 3.9 g/dl (3.5-5.0) 01/24/24 21:47
Diagnostic Results: as per HPI
Assessment
83 y/o M PMH (Parkinson's disease with frequent falls, persistent atrial fibrillation, sick sinus syndrome status post pacemaker, CVA 2019, HTN, HLD, bilateral knee arthritis) S/P R knee quadriceps rupture S/P repair by Dr. Juan Kerr on
01/26/2024.
Plan
PM&R PT/OT to increase independence with ADLs, improve balance, coordination, endurance, strength, mobility, community reintegration, decreased burden of care on others and family education.
Status post right quadricep tendon rupture repair 01/26/24: Monitor incision, pain control, continue knee immobilizer locked in neutral until cleared by orthopedics. He is weightbearing as tolerated on the right lower extremity with the knee
immobilizer.
Parkinson's disease: With frequent falls. On amantadine, rotigotine, entacapone, amantadine, and Sinemet.
-Notes a recent change in medication by his neurologist at [facility] approximately 3 weeks ago. Does have some dyskinesias both upper extremities. May have some in the lower extremities which could have led to the fall. Should follow-up with
neurologist upon discharge.
HTN: Metoprolol, torsemide, metoprolol, monitor closely
HLD: Statin������
Atrial fibrillation:�Not on anticoagulation and rate control with metoprolol and flecainide.���������������������������� ��������������
Normocytic anemia: Likely multifactorial.� Continue to monitor.
Diabetes?: Jardiance
FEN:
Psych: Psychology consult.� Monitor mood, on Remeron and Zoloft.
Skin: monitor for pressure sores/rashes/lesions.
Pain: acetaminophen or oxycodone as needed.
Bowel: Colace and Senna, PRN bisacodyl.
Bladder: Time void, PVRs, PRN straight cath. Takes Vesicare
GI Prophylaxis: Pantoprazole
DVT Prophylaxis: Lovenox DVT prophylaxis for at least 30 days..
Pulmonary: Incentive spirometry
Safety: Continue to reinforce assistance with all transfers.
Code Status:� DNR per chart
Dispo (date/plan/equipment needs): Home with family care.
Functional and Medical Goals: Modified Independent with ADL�s, ambulation, transfers
- Discharge Destination: Acute inpatient rehabilitation as discussed with the patient and his .
-A total of 60 minutes were spent with the patient preparing for the evaluation, obtaining history, performing examination and evaluation, counseling, data review, case management, care coordination, radiology orderly, and EMR documentation.
Summary of recommendations:
Discharge Destination: Acute inpatient rehabilitation
Status post right quadricep tendon rupture repair 01/26/24: Monitor incision, pain control, continue knee immobilizer locked in neutral until cleared by orthopedics. He is weightbearing as tolerated on the right lower extremity with the knee
immobilizer.
Parkinson's disease: With frequent falls. On amantadine, rotigotine, entacapone, amantadine, and Sinemet.
-Notes a recent change in medication by his neurologist at [facility] approximately 3 weeks ago. Does have some dyskinesias both upper extremities. May have some in the lower extremities which could have led to the fall. Should follow-up with
neurologist upon discharge.
Thank you for allowing me to care for your patient. Please contact me with any questions or concerns.
[2024-01-27] MEDS: NEUPRO 4 MG TRANSDERM (16:55)
[2024-01-27] MEDS: NEUPRO 2 MG TRANSDERM (16:55)
[2024-01-27] MEDS: NORMOSOL-R IV (17:04)
--- NOTE | 2024-01-27 17:20 | PTCARENOTE ---
d/w attending radha completed. pt with intermit confusion. continue incont care, pain control and preventative skin care
[2024-01-27 23:00] VITALS: BP 126/72
[2024-01-27] MEDS: LIPITOR 10 MG PO (23:33)
[2024-01-27] MEDS: REMERON 15 MG PO (23:33)
[2024-01-27] MEDS: ZYRTEC 10 MG PO (23:34)
[2024-01-27] MEDS: ZOLOFT 100 MG PO (23:34)
[2024-01-28] MEDS: NORMOSOL-R IV (00:17)
[2024-01-28] MEDS: TYLENOL PO (01:20)
[2024-01-28] MEDS: TYLENOL 650 MG PO ×6 (03:28→23:57)
[2024-01-28] MEDS: SINEMET 25-100 0.5 TABLET PO ×6 (06:18→22:57)
[2024-01-28] MEDS: COMTAN 200 MG PO ×6 (06:18→22:57)
[2024-01-28] MEDS: SINEMET 25-100 1 TABLET PO ×6 (06:18→22:57)
[2024-01-28 07:00] VITALS: BP 136/75
[2024-01-28 08:41] LABS: % Basophils 0.5 % (0-2); % Eosinophils 3.4 % (0-6); % Lymphocytes 16.3 % (20.5-51.1); % Monocytes 11.8 % (1.7-9.3); Absolute Basophils 0.1 10^3/uL (0-0.2); Absolute Eosinophils 0.3 10^3/uL (0-0.7); Absolute Immature Granulocytes 0.1 10^3/uL (0-0.05); Absolute Lymphocytes 1.5 10^3/uL (1.2-3.4); Absolute Monocytes 1.1 10^3/uL (0.1-0.6); Absolute Neutrophils 6.1 10^3/uL (1.4-6.5); Hemoglobin 9.9 g/dL (13.0-18.0); Mean Corpuscular Hgb 27.4 pg (27.0-31.0); Mean Corpuscular Volume 83.1 fL (80.0-94.0); Mean Platelet Volume 8.3 fL (7.4-10.4); Nucleated Red Blood Cells % 0 % (-); Platelet Count 304 10^3/uL (130-400); Red Blood Cell Count 3.61 10^6/uL (4.70-6.10); Red Cell Dist. Width 16.7 % (11.5-14.5); White Blood Cell Count 9.1 10^3/uL (4.8-10.8)
[2024-01-28] MEDS: LOVENOX 30 MG SC (08:49)
[2024-01-28] MEDS: SYMMETREL 100 MG PO (08:50)
[2024-01-28] MEDS: TAMBOCOR 100 MG PO ×2 (08:50→20:19)
[2024-01-28] MEDS: VESICARE 5 MG PO (08:50)
[2024-01-28] MEDS: PROTONIX 40 MG PO (08:50)
[2024-01-28] MEDS: COLACE 100 MG PO ×2 (08:51→20:19)
[2024-01-28] MEDS: JARDIANCE 10 MG PO (08:51)
[2024-01-28] MEDS: DEMADEX 10 MG PO (08:51)
[2024-01-28] MEDS: TOPROL XL 25 MG PO (08:51)
[2024-01-28 09:20] LABS: Blood Urea Nitrogen 22 mg/dl (9-20); Carbon Dioxide 28 mmol/L (22-30); Chloride 103 mmol/L (98-107); Estimated Creatinine Clearance 54 ml/min; Glucose 95 mg/dl (70-99); Potassium 4.3 mmol/L (3.5-5.1); Sodium 132 mmol/L (135-145); eGFR > 60.00
[2024-01-28 12:12] VITALS: BP 117/75; PULSE 61; O2SAT 96
[2024-01-28] MEDS: NEUPRO 4 MG TRANSDERM (14:13)
[2024-01-28] MEDS: NEUPRO 2 MG TRANSDERM (14:14)
--- NOTE | 2024-01-28 14:39 | W.PN.HOSP.TC ---
Today's Communication/Plan
-
Continue physical therapy.
Disposition efforts likely to acute rehab.
Assessment / Plan
Assessment / Plan
Impression:
Right knee quadriceps rupture secondary to mechanical fall.
AIYANA
Conditions prior to admission:
Persistent atrial fibrillation
Sick sinus syndrome status post pacemaker.
History of CVA 2019.
Essential hypertension
Dyslipidemia
Parkinson disease
Chronic ambulatory dysfunction with multiple falls.
Osteoarthritis of the knee with injections to the left knee.
Overactive bladder
Plan:
Right knee quadriceps rupture.
Orthopedic input appreciated.
Status post repair of right quadriceps on 01/25
Physical therapy assessment
Physiatry consultation appreciated. Recommended acute rehab.
DVT prophylaxis with Lovenox for 30 days
Persistent atrial fibrillation
Sick sinus syndrome with pacemaker in place.
Not on anticoagulation secondary to fall risk.
Continue metoprolol
Valvular heart disease
Essential hypertension
Echo 2019 LVEF 70-75%, enlarged right ventricle, normal right ventricular function. Mild to moderate MR.
Monitor volume status closely.
Preadmission regimen: Metoprolol, torsemide, Jardiance.
AIYANA creatinine 1.3. Improved.
Hold torsemide.
Monitor BMP.
Reinstate diuretic postoperatively
Parkinson disease
Continue carbidopa levodopa
Anticipated Discharge: 24 - 48 hours
Subjective/Interval History
-
Date of Service: January 28, 2024
Objective Data
-
Labs:
Laboratory Results
01/28/24
08:06
WBC 9.1
Hgb 9.9 L
Hct 30.0 L
Plt Count 304
Sodium 132 L
Potassium 4.3
Chloride 103
Carbon Dioxide 28
BUN 22 H
Creatinine 1.0
Glucose 95
Calcium 9.0
Vital Signs:
Vital Signs
Temp Pulse Resp BP Pulse Ox
98.5 F 63 18 136/75 93
01/28/24 07:00 01/28/24 07:00 01/28/24 07:00 01/28/24 07:00 01/28/24 07:00
I&O
01/27/24 01/28/24 01/29/24
06:59 06:59 06:59
Intake Total 1300 / 1300 480 / 480
Output Total 320 / 320
Balance 1300 / 1300 160 / 160
Physical Exam
-
General: Well Developed and No Apparent Distress
HEENT: Normocephalic, Atraumatic and Moist Mucous Membranes
Respiratory: Clear to Auscultation
Cardiac: Regular Rhythm and S1/S2; Negative Murmur, Rub or Gallop
GI: Soft, Nontender, Nondistended and Normal Bowel Sounds; Negative Organomegaly
Rectal: Deferred by Provider
Musculoskeletal: No Clubbing, No Cyanosis and No Edema
Skin: Negative Rash
Neuro: Nonfocal/Grossly Intact
[2024-01-28 15:00] VITALS: BP 122/68
[2024-01-28] MEDS: LIPITOR 10 MG PO (22:56)
[2024-01-28] MEDS: REMERON 15 MG PO (22:56)
[2024-01-28] MEDS: ZYRTEC 10 MG PO (22:57)
[2024-01-28] MEDS: ZOLOFT 100 MG PO (22:57)
[2024-01-28 23:00] VITALS: BP 158/94
[2024-01-29] MEDS: TYLENOL PO (04:45)
[2024-01-29] MEDS: SINEMET 25-100 1 TABLET PO ×6 (06:27→22:34)
[2024-01-29] MEDS: SINEMET 25-100 0.5 TABLET PO ×6 (06:27→22:34)
[2024-01-29] MEDS: COMTAN 200 MG PO ×6 (06:27→22:34)
[2024-01-29 07:00] VITALS: BP 120/77
[2024-01-29] MEDS: COLACE 100 MG PO ×2 (08:14→20:04)
[2024-01-29] MEDS: JARDIANCE 10 MG PO (08:14)
[2024-01-29] MEDS: VESICARE 5 MG PO (08:14)
[2024-01-29] MEDS: SYMMETREL 100 MG PO (08:14)
[2024-01-29] MEDS: PROTONIX 40 MG PO (08:15)
[2024-01-29] MEDS: TOPROL XL 25 MG PO (08:15)
[2024-01-29] MEDS: LOVENOX 30 MG SC (08:15)
[2024-01-29] MEDS: TAMBOCOR 100 MG PO ×2 (08:15→20:04)
[2024-01-29] MEDS: TYLENOL 650 MG PO ×4 (08:15→20:05)
[2024-01-29] MEDS: DEMADEX PO (08:52)
[2024-01-29 12:46] VITALS: BP 112/76; PULSE 63; O2SAT 92
--- NOTE | 2024-01-29 13:56 | W.PN.HOSP.TC ---
Today's Communication/Plan
-
PT
Pending discharge to acute rehab.
Assessment / Plan
Assessment / Plan
Impression:
Right knee quadriceps rupture secondary to mechanical fall.
AIYANA
Hypovolemia hyponatremia
Conditions prior to admission:
Persistent atrial fibrillation
Sick sinus syndrome status post pacemaker.
History of CVA 2019.
Essential hypertension
Dyslipidemia
Parkinson disease
Chronic ambulatory dysfunction with multiple falls.
Osteoarthritis of the knee with injections to the left knee.
Overactive bladder
Plan:
Right knee quadriceps rupture.
Orthopedic input appreciated.
Status post repair of right quadriceps on 01/25
Physical therapy assessment
Physiatry consultation appreciated. Recommended acute rehab.
DVT prophylaxis with Lovenox for 30 days
Persistent atrial fibrillation
Sick sinus syndrome with pacemaker in place.
Not on anticoagulation secondary to fall risk.
Continue metoprolol
Valvular heart disease
Essential hypertension
Echo 2019 LVEF 70-75%, enlarged right ventricle, normal right ventricular function. Mild to moderate MR.
Monitor volume status closely.
Preadmission regimen: Metoprolol, torsemide, Jardiance.
AIYANA creatinine 1.3. Improved.
Hypovolemic hyponatremia improved
Torsemide changed to PRN for weight gain
Monitor BMP.
Parkinson disease
Continue carbidopa levodopa
Anticipated Discharge: Within 24 hours
Subjective/Interval History
-
Date of Service: January 29, 2024
Objective Data
-
Vital Signs:
Vital Signs
Temp Pulse Resp BP Pulse Ox
98.4 F 63 18 120/77 96
01/29/24 07:00 01/29/24 07:00 01/29/24 07:00 01/29/24 07:00 01/29/24 07:00
I&O
0401/29/24 01/30/24
06:59 06:59 06:59
Intake Total 480 / 480 1120 / 1120
Output Total 320 / 320 750 / 750
Balance 160 / 160 370 / 370
Physical Exam
-
General: Well Developed and No Apparent Distress
HEENT: Normocephalic, Atraumatic and Moist Mucous Membranes
Respiratory: Clear to Auscultation
Cardiac: Regular Rhythm and S1/S2; Negative Murmur, Rub or Gallop
GI: Soft, Nontender, Nondistended and Normal Bowel Sounds; Negative Organomegaly
Rectal: Deferred by Provider
Musculoskeletal: No Clubbing, No Cyanosis and No Edema
Skin: Negative Rash
Neuro: Nonfocal/Grossly Intact
--- NOTE | 2024-01-29 14:16 | CM ---
Spoke with attending who stated that patient is medically cleared for discharge. Placed a call to Angeline Mccormick in admissions at [facility]. Her outgoing voicemail indicated that she is on vacation and deferred to [facility], , or Angeline (not
sure of last name). Placed a call to Opal and Angeline [phone] however had to leave voice mails for both as there was no answer.
Met with patient and his spouse who was at bedside to update that if any information regarding potential admission to [facility] is received, will update and facilitate discharge.
Plan: Case management will continue to follow and assist with discharge planning. Patient and his spouse are hopeful for [facility] upon discharge.
[2024-01-29] MEDS: NEUPRO 4 MG TRANSDERM (14:22)
[2024-01-29] MEDS: NEUPRO 2 MG TRANSDERM (14:27)
[2024-01-29 15:00] VITALS: BP 125/74
[2024-01-29] MEDS: ZOLOFT 100 MG PO (22:33)
[2024-01-29] MEDS: ZYRTEC 10 MG PO (22:33)
[2024-01-29] MEDS: LIPITOR 10 MG PO (22:33)
[2024-01-29] MEDS: REMERON 15 MG PO (22:33)
[2024-01-29 23:55] VITALS: BP 136/82
[2024-01-30] MEDS: TYLENOL PO (01:10)
[2024-01-30] MEDS: TYLENOL 650 MG PO ×3 (03:45→11:55)
[2024-01-30 06:07] LABS: Blood Urea Nitrogen 29 mg/dl (9-20); Calcium 9.9 mg/dl (8.4-10.2); Carbon Dioxide 29 mmol/L (22-30); Chloride 98 mmol/L (98-107); Estimated Creatinine Clearance 49 ml/min; Glucose 103 mg/dl (70-99); Potassium 4.6 mmol/L (3.5-5.1); Sodium 133 mmol/L (135-145); eGFR > 60.00
[2024-01-30] MEDS: SINEMET 25-100 0.5 TABLET PO ×3 (06:30→14:46)
[2024-01-30] MEDS: COMTAN 200 MG PO ×3 (06:30→14:46)
[2024-01-30] MEDS: SINEMET 25-100 1 TABLET PO ×3 (06:30→14:46)
[2024-01-30 07:49] VITALS: BP 130/74
[2024-01-30] MEDS: LOVENOX 30 MG SC (08:01)
[2024-01-30] MEDS: VESICARE 5 MG PO (08:02)
[2024-01-30] MEDS: SYMMETREL 100 MG PO (08:02)
[2024-01-30] MEDS: COLACE 100 MG PO (08:02)
[2024-01-30] MEDS: TAMBOCOR 100 MG PO (08:02)
[2024-01-30] MEDS: TOPROL XL 25 MG PO (08:02)
[2024-01-30] MEDS: JARDIANCE 10 MG PO (08:03)
[2024-01-30] MEDS: PROTONIX 40 MG PO (08:03)
--- NOTE | 2024-01-30 10:20 | CM ---
Addendum entered by Ariane Weinstein RN 01/30/24 12:34:
Updated OT done.
Angeline Brasher confirmed pt accepted today to [facility].
RN and MD also notified .
IMM given signed and on chart.
[facility]
report [phone]
fax [phone]
To [facility] via wc
Original Note:
PT OT recommended [facility].
Pt desires [facility]
Spoke with Agneline khanna at [facility] to check if bed ready and can accept him.
Pt is Medicare.
PLAN Awaiting [facility] Acute care availability
--- NOTE | 2024-01-30 10:56 | W.DCSUMMARY ---
Addendum entered and electronically signed by Ben Fields MD 01/30/24 15:30:
Attending Addendum:
Read reviewed and agree. See same day progress note for additional details.
Freddy Fields MD
Original Note:
Documented by User: Jerica Lizarraga, Resident, 01/30/24 14:30
Discharge Summary
Discharge Data
Date of Admission: 01/24/24
Date of Discharge: 01/30/24
-
Pending Results: No
Hospital Course
This is a 83 year old patient with PMH of Parkinson's, frequent falls, chronic ambulatory dysfunction, persistent A-fib, sick sinus syndrome with pacemaker, hx of previous CVA in 2019 and arthritic knee with injections to left knee [facility]
at [facility] who came to ED with presented to ED with history of falls in the past three day and being unable to lift his right leg due to pain and swelling in his right knee. Xray of right knee on 01/24/24 shows suprapatellar moderate to
large joint effusion and no evidence of acute fracture or dislocation. Orthopedics was consulted and advised repair of right quadriceps. He was medically cleared for surgery with class II RCRI. Eliquis was held. Surgery done on 01/[address] Kerr.
Post surgery he was started on Lovenox and this will be continued for 4 weeks followed by aspirin 325 OD. He will follow up with orthopedics in 2 weeks. AIYANA-initial creatinine was 1.3 and hyponatremia-sodium was 132, torsemide was held. Improved
now with serum creatinine of 1.1 and sodium of 133. Torsemide changed to PRN for weight gain. PT/OT was consulted- OT recommended acute rehab due to requiring current supervision for moderate assistance to complete simple ADLs, functional transfers
and ambulation with PT recommednign continued therapy services. Other medical problems (Atrial fibrillation-controlled on metoprolol and he was not on any anticoagulation due to fall risk, Valvular heart disease-Echo 2019 LVEF 70-75%, continued on
metoprolol and jardiance, Parkinson's disease-continued on Sinemet and entacapone) were stable during his hospital stay. As per PT recommendations, patient will be discharged to acute rehab/[facility] rehab.
Discharge Plan
-
Patient Disposition: Acute Rehab Facility
Discharge Diagnosis/Procedures: Impression:
Right knee quadriceps rupture secondary to mechanical fall.
AIYANA
Conditions prior to admission:
Persistent atrial fibrillation
Sick sinus syndrome status post pacemaker.
History of CVA 2019.
Essential hypertension
Dyslipidemia
Parkinson disease
Chronic ambulatory dysfunction with multiple falls.
Osteoarthritis of the knee with injections to the left knee.
Overactive bladder
Condition: Good
Diet: Regular
Activity: With assistance
Other Services: PT, OT and ST
Referrals:
Dhruv Figueredo MD [Family Provider] -
Additional Discharge Medication Instructions: Follow up with Orthopedics Dr. Kerr in 2 weeks.
Prescriptions:
New
docusate sodium 100 mg Capsule
100 mg PO BID Qty: 30 0RF
entacapone 200 mg Tablet
200 mg PO 0700,1100,1400,1700,2000,2300 Qty: 60 0RF
bisacodyl 10 mg Suppository
10 mg MI DAILYPRN PRN (Reason: Constipation) Qty: 30 0RF
enoxaparin 30 mg/0.3 mL Syringe
30 mg SC DAILY Qty: 3 0RF
oxycodone 5 mg Tablet
5 mg PO Q4HPRN PRN (Reason: moderate pain) Qty: 20 0RF
Continued
cetirizine [Zyrtec] 10 MG tablet
10 mg PO HS
atorvastatin 10 MG tablet
10 mg PO HS
omeprazole 20 MG capsule,delayed release(DR/EC)
20 mg PO DAILY
sertraline 100 mg tablet
100 mg PO HS
amantadine HCl 100 mg capsule
100 mg PO DAILY
flecainide 50 mg tablet
100 mg PO BID
mirtazapine 15 mg tablet
15 mg PO HS
carbidopa-levodopa [Dhivy] 25-100 mg tablet
0.5 tab PO Q3H
Patient Comments:
01/24/2024: 0700,1100,1400,1700,2000,2300
zmdjvbhdc-ogyuivwi-wccctsfjeq 25-100-200 mg tablet
1 tab PO Q3H
Patient Comments:
01/24/2024: 0700,1100,1400,1700,2000,2300
solifenacin 5 mg tablet
5 mg PO DAILY
Jardiance 10 mg tablet
10 mg PO DAILY
polyethylene glycol 3350 [Miralax] 17 gram Powder In Packet
17 g PO DAILY PRN (Reason: constipation)
acetaminophen 650 mg Tablet Extended Release
650 mg PO Q3H
Patient Comments:
: Taken with Sinemet
metoprolol succinate 25 mg tablet extended release 24 hr
25 mg PO DAILY
Neupro 6 mg/24 hour patch 24 hour
1 patch transdermal DAILY
Changed
torsemide 20 mg tablet
10 mg PO DAILY PRN (Reason: Fluid Retention/Swelling) Qty: 0 0RF
Discharge Orders:
Discharge Patient (As Directed); Ordered 01/30/24
Ordered By: Jerica Lizarraga
Discharge Date and Time
Discharge Date/Time: 01/30/24 15:11
Print Language: CITIZ[place]

Documented by User: Ben Fields MD 01/30/24 15:17
Discharge Summary
Discharge Data
Date of Admission: 01/24/24
Date of Discharge: 01/30/24
Discharge Plan
-
Patient Disposition: Acute Rehab Facility
Discharge Diagnosis/Procedures: Impression:
Right knee quadriceps rupture secondary to mechanical fall.
AIYANA
Conditions prior to admission:
Persistent atrial fibrillation
Sick sinus syndrome status post pacemaker.
History of CVA 2020.
Essential hypertension
Dyslipidemia
Parkinson disease
Chronic ambulatory dysfunction with multiple falls.
Osteoarthritis of the knee with injections to the left knee.
Overactive bladder
Condition: Good
Diet: Regular
Activity: With assistance
Other Services: PT, OT and ST
Referrals:
Dhruv Figueredo MD [Family Provider] -
Additional Discharge Medication Instructions: Follow up with Orthopedics Dr. Kerr in 2 weeks.
Prescriptions:
New
docusate sodium 100 mg Capsule
100 mg PO BID Qty: 30 0RF
entacapone 200 mg Tablet
200 mg PO 0700,1100,1400,1700,2000,2300 Qty: 60 0RF
bisacodyl 10 mg Suppository
10 mg MI DAILYPRN PRN (Reason: Constipation) Qty: 30 0RF
enoxaparin 30 mg/0.3 mL Syringe
30 mg SC DAILY Qty: 3 0RF
oxycodone 5 mg Tablet
5 mg PO Q4HPRN PRN (Reason: moderate pain) Qty: 20 0RF
Continued
cetirizine [Zyrtec] 10 MG tablet
10 mg PO HS
atorvastatin 10 MG tablet
10 mg PO HS
omeprazole 20 MG capsule,delayed release(DR/EC)
20 mg PO DAILY
sertraline 100 mg tablet
100 mg PO HS
amantadine HCl 100 mg capsule
100 mg PO DAILY
flecainide 50 mg tablet
100 mg PO BID
mirtazapine 15 mg tablet
15 mg PO HS
carbidopa-levodopa [Dhivy] 25-100 mg tablet
0.5 tab PO Q3H
Patient Comments:
01/24/2024: 0700,1100,1400,1700,2000,2300
pdgetjdlt-swqomaox-eswlshhtjm 25-100-200 mg tablet
1 tab PO Q3H
Patient Comments:
01/24/2024: 0700,1100,1400,1700,2000,2300
solifenacin 5 mg tablet
5 mg PO DAILY
Jardiance 10 mg tablet
10 mg PO DAILY
polyethylene glycol 3350 [Miralax] 17 gram Powder In Packet
17 g PO DAILY PRN (Reason: constipation)
acetaminophen 650 mg Tablet Extended Release
650 mg PO Q3H
Patient Comments:
: Taken with Sinemet
metoprolol succinate 25 mg tablet extended release 24 hr
25 mg PO DAILY
Neupro 6 mg/24 hour patch 24 hour
1 patch transdermal DAILY
Changed
torsemide 20 mg tablet
10 mg PO DAILY PRN (Reason: Fluid Retention/Swelling) Qty: 0 0RF
Discharge Orders:
Discharge Patient (As Directed); Ordered 01/30/24
Ordered By: Jerica Lizarraga
Discharge Date and Time
Discharge Date/Time: 01/30/24 15:11
Print Language: CITIZEN [place]
[2024-01-30 11:05] VITALS: BP 79/54; BP 79/56; PULSE 63
[2024-01-30 11:39] VITALS: BP 79/54; BP 79/56; PULSE 63
[2024-01-30 11:45] VITALS: BP 105/62
[2024-01-30] MEDS: NEUPRO 4 MG TRANSDERM (14:47)
[2024-01-30] MEDS: NEUPRO 2 MG TRANSDERM (14:47)
--- NOTE | 2024-01-30 14:50 | W.PN.HOSP.TC ---
Addendum entered and electronically signed by Ben Fields MD 01/30/24 15:25:
Attending Addendum-
I saw and evaluated the patient. I reviewed the resident�s note and agree with findings and plan as documented in the resident�s note. patient feels much improved. Pain in right quad controlled. Full 12 point ROS reviewed and negative except as
documented Exam: gen nad heart irreg irreg lungs clear abd soft Ext: right knee in immobilizer and bandaged, - ruiz in place draining clear yelllow urine Plan:
# Right Quad rupture- s/p repair Dr. gee 01/25, f/u 2 weeks, wound care per ortho, DC to acute rehab today cont DVT proph lovenox x 30 days then asa 325
# Urinary Retention- for voiding trial at rehab
# Hyponatremia- f/u BMP in one week
Dispo DC to [facility]
Time spent coordinating care, review of plan of care with resident, DC planning, review of records, med rec, consults, notes, labs, rads, d/w nursing � 37 mins
Original Note:
Today's Communication/Plan
-
Pending discharge today to acute rehab/[facility].
Assessment / Plan
Assessment / Plan
Impression:
This is a 83 year old male patient that was admitted due to right knee quadriceps rupture secondary to mechanical fall.
Plan:
#Right knee quadriceps rupture.
S/p repair of right quadriceps on 01/25 by
PT/OT consult;recommended acute rehab due to assistance required for ADLs and standing.
Pending discharged to [facility]
DVT prophylaxis with Lovenox for 30 days followed up with aspirin 325 OD.
Follow up in 2 weeks with orthopedics, .
#AIYANA
creatinine improved, initially was 1.3, it is now 1.1
Hypovolemic hyponatremia improved,initially on 01/25 132 and now 133.
Torsemide was previously changed to PRN for weight gain
#Persistent atrial fibrillation
Sick sinus syndrome with pacemaker placed in 2019
Continue flecainide
#Essential Hypertension
Continue metoprolol
#Parkinson disease
Continue carbidopa levodopa, entacapone
Anticipated Discharge: Today
Subjective/Interval History
-
Date of Service: January 30, 2024
Patient has no current complaints. With PT, patient was able to ambulate with 2x trials within the room and needed maximal assist of two to stand.
Objective Data
-
Labs:
Laboratory Results
01/30/24
05:07
Sodium 133 L
Potassium 4.6
Chloride 98
Carbon Dioxide 29
BUN 29 H
Creatinine 1.1
Glucose 103 H
Calcium 9.9
Vital Signs:
Vital Signs
Temp Pulse Resp BP Pulse Ox
98.8 F 63 16 130/74 97
01/30/24 07:49 01/30/24 07:49 01/30/24 07:49 01/30/24 07:49 01/30/24 07:49
I&O
01/29/24 01/30/24 01/31/24
06:59 06:59 06:59
Intake Total 1120 / 1120 1050 / 1050
Output Total 750 / 750 900 / 900
Balance 370 / 370 150 / 150
Review of Systems
-
History Source: Patient and Family (patient's partner)
All other systems: Reviewed and negative
Physical Exam
-
General: No Apparent Distress and Conversant
HEENT: Normocephalic
Respiratory: Clear to Auscultation
Cardiac: Regular Rhythm and S1/S2; Negative Murmur
GI: Soft, Nontender and Nondistended
Musculoskeletal: Other (brace on right lower extremity)
Neuro: Awake, Alert and Oriented
Psych: Calm
== END 2024-01-30 15:11 | DRG 501 ==
LOC: 3 WEST ACU 22:43
PROVIDERS: Clinical Nurse Specialist Family Health; Internal Medicine; Nurse Practitioner; Student in an Organized Health Care Education/Training Program; ADMITTING PHYSICIAN Internal Medicine; ATTENDING PHYSICIAN Family Medicine; CONSULT PHYSICIAN Physical Medicine & Rehabilitation; EMERGENCY PHYSICIAN Emergency Medicine; FAMILY PHYSICIAN Hospitalist; OTHER PHYSICIAN Orthopaedic Surgery Hand Surgery
PROC: 0LQL0ZZ Repair Right Upper Leg Tendon, Open Approach (ICD-10-PCS; 2024-01-24)
DX: S76.111A Strain of right quadriceps muscle, fascia and tendon, initial encounter (principal); E87.1 Hypo-osmolality and hyponatremia; I48.19 Other persistent atrial fibrillation; W18.39XA Other fall on same level, initial encounter; G20.B1 Parkinson's disease with dyskinesia, without mention of fluctuations; I49.5 Sick sinus syndrome; I10 Essential (primary) hypertension; Z86.73 Personal history of transient ischemic attack (TIA), and cerebral infarction without residual deficits; Z95.0 Presence of cardiac pacemaker
CPT/HCPCS: 73564; 80048; 80053; 82962; 85025; 93005; 97116; 97163; 97167; 97530; 97535; 99285